=== PATIENT | female | born 1990 | race Caucasian/White ===

== ENCOUNTER 2019-04-11 13:45 | Outpatient (CLI) | payer MEDICAID ==
[2019-04-11 14:31] LABS: Basophils # (Auto) 0.1 K/mm3 (0.0-0.1); Basophils % (Auto) 1.1 % (0.0-1.8); Eosinophils % (Auto) 0.4 % (0.0-4.3); Hematocrit 32.3 % (30.3-42.9); Hemoglobin 11.1 gm/dl (10.1-14.3); Lymphocytes # (Auto) 1.5 K/mm3 (1.2-5.4); Lymphocytes % (Auto) 24.7 % (13.4-35.0); Mean Corpuscular HGB Conc 35 % (30-34); Mean Corpuscular Volume 87 fl (79-97); Monocytes # (Auto) 0.6 K/mm3 (0.0-0.8); Monocytes % (Auto) 9.4 % (0.0-7.3); Platelet Count 115 K/mm3 (140-440); Red Blood Count 3.72 M/mm3 (3.65-5.03); Red Cell Distribution Width 16.8 % (13.2-15.2)
[2019-04-11 15:02] LABS: Creatinine,Urine 103.4 mg/dL (0.1-20.0); Protein/Creatinine Ratio,Urine 0.17
[2019-04-11 15:41] LABS: Alanine Aminotransferase 9 units/L (7-56); Albumin 2.5 g/dL (3.9-5)
[2019-04-11 15:43] LABS: Bilirubin,Direct < 0.2 mg/dL (0-0.2)
--- NOTE | 2019-04-11 16:35 | Progress Note ---
Subjective - Subjective Date of service: 04/11/19 Interval history: Patient at 31+6/7 weeks BP's in triage <140/90 BPP 8/8x2 P/C ratio 0.17 no acute OB complaints no intervention at this time D/C home, fup PNP w/in one week. Preeclampsia and labor precautions Solomon Coats MD Objective - Vital Signs Vital Signs: Vital Signs - 12hr 04/11/19 04/11/19 04/11/19 14:07 14:08 14:13 Temperature Pulse Rate 82 85 87 Respiratory Rate Blood Pressure 137/89 O2 Sat by Pulse 99 99 Oximetry 04/11/19 04/11/19 04/11/19 14:18 14:22 14:23 Temperature Pulse Rate 82 83 83 Respiratory Rate Blood Pressure 128/87 O2 Sat by Pulse 99 99 Oximetry 04/11/19 04/11/19 04/11/19 14:25 14:28 14:33 Temperature 98.2 F Pulse Rate 85 87 Respiratory 18 Rate Blood Pressure O2 Sat by Pulse 99 99 Oximetry 04/11/19 04/11/19 04/11/19 14:38 14:39 14:43 Temperature Pulse Rate 90 82 86 Respiratory Rate Blood Pressure 133/80 O2 Sat by Pulse 99 99 Oximetry 04/11/19 04/11/19 04/11/19 14:48 14:53 14:54 Temperature Pulse Rate 80 79 86 Respiratory Rate Blood Pressure 126/82 O2 Sat by Pulse 100 98 Oximetry 04/11/19 04/11/19 04/11/19 14:58 15:03 15:07 Temperature Pulse Rate 81 85 80 Respiratory Rate Blood Pressure 123/83 O2 Sat by Pulse 98 98 Oximetry 04/11/19 04/11/19 15:08 16:31 Temperature Pulse Rate 80 78 Respiratory Rate Blood Pressure 136/87 O2 Sat by Pulse 98 100 Oximetry - Labs Labs: Abnormal Labs 04/11/19 04/11/19 04/11/19 14:15 14:15 Unknown MCHC 35 H RDW 16.8 H Plt Count 115 L [place] % (Auto) 9.4 H Alkaline Phosphatase 273 H Total Protein 6.2 L Albumin 2.5 L Urine Creatinine 103.4 H Ur Total Protein 24 Hr Urine Total Protein 18 H 04/11/19 Unknown MCHC RDW Plt Count [place] % (Auto) Alkaline Phosphatase Total Protein Albumin Urine Creatinine Ur Total Protein 24 Hr 220.00 H Urine Total Protein 20 H Laboratory Results - last 24 hr 04/11/19 04/11/19 04/11/19 14:15 14:15 14:15 WBC 6.2 RBC 3.72 Hgb 11.1 Hct 32.3 MCV 87 MCH 30 MCHC 35 H RDW 16.8 H Plt Count 115 L Lymph % (Auto) 24.7 [place] % (Auto) 9.4 H Eos % (Auto) 0.4 Baso % (Auto) 1.1 Lymph # 1.5 [place] # 0.6 Eos # 0.0 Baso # 0.1 Seg Neutrophils % 64.4 Seg Neutrophils # 4.0 Uric Acid 6.5 Total Bilirubin 0.30 Direct Bilirubin < 0.2 Indirect Bilirubin 0.1 AST 22 ALT 9 Alkaline Phosphatase 273 H Total Protein 6.2 L Albumin 2.5 L Albumin/Globulin Ratio 0.7 Urine Total Volume Urine Creatinine Ur Total Protein 24 Hr Protein/Creatinin Ratio Urine Total Protein 04/11/19 04/11/19 Unknown Unknown WBC RBC Hgb Hct MCV MCH MCHC RDW Plt Count Lymph % (Auto) [place] % (Auto) Eos % (Auto) Baso % (Auto) Lymph # [place] # Eos # Baso # Seg Neutrophils % Seg Neutrophils # Uric Acid Total Bilirubin Direct Bilirubin Indirect Bilirubin AST ALT Alkaline Phosphatase Total Protein Albumin Albumin/Globulin Ratio Urine Total Volume 1100 Urine Creatinine 103.4 H Ur Total Protein 24 Hr 220.00 H Protein/Creatinin Ratio 0.17 Urine Total Protein 18 H 20 H
--- NOTE | 2019-04-11 16:40 | Ultrasound Report ---
Biophysical profile twin B INDICATION: PIH COMPARISON: None FINDINGS: breathing movement: 2/2 movement: 2/2 posture and tone: 2/2 Qualitative amniotic fluid volume: 2/2 IMPRESSION: Total score for biophysical profile is 8/8 heart rate is 128 bpm Signer Name: Vinny Billings MD Signed: 04/11/2019 4:36 PM Workstation Name: [facility] [place]
--- NOTE | 2019-04-11 16:42 | Ultrasound Report ---
Umbilical artery Doppler , TWIN A INDICATION: -induced hypertension FINDINGS: SD ratio average is 2.77 with a normal waveform. This is within the normal range. Resistive index averages is 0.64 with normal waveform. This is within normal range. heart rate is 139 bpm. IMPRESSION: Umbilical artery Doppler is within normal limits Signer Name: Vinny Billings MD Signed: 04/11/2019 4:38 PM Workstation Name: [id number]
--- NOTE | 2019-04-11 16:48 | Ultrasound Report ---
ULTRASOUND OBSTETRIC LIMITED ULTRASOUND BIOPHYSICAL PROFILE INDICATION / CLINICAL INFORMATION: twins, maternal PIH. COMPARISON: None available. FINDINGS: Twin intrauterine . Twin A: BREATHING MOVEMENT = 2 GROSS BODY MOVEMENT = 2 TONE = 2 QUALITATIVE AMNIOTIC FLUID VOLUME = 2 TOTAL BIOPHYSICAL SCORE = 8/8 HEART RATE (beats per minute): 132 Twin B: BREATHING MOVEMENT = 2 GROSS BODY MOVEMENT = 2 TONE = 2 QUALITATIVE AMNIOTIC FLUID VOLUME = 2 TOTAL BIOPHYSICAL SCORE = 8/8 HEART RATE (beats per minute): 128 IMPRESSION: 1. Twin intrauterine . 2. Both twins have total biophysical profile score of 8/8. Signer Name: Negro Sinha MD Signed: 04/11/2019 4:44 PM Workstation Name: [id number]
[2019-04-11 16:57] VITALS: BP 138/84
--- NOTE | 2019-04-11 17:25 | Ultrasound Report ---
Umbilical artery Doppler, twin B INDICATION: -induced hypertension FINDINGS: The S/D ratio average is 2.58 within the normal range. Waveform is normal. Resistive index averages 0.61 with a normal waveform. This is normal. heart rate is 153 bpm IMPRESSION: SD ratios and resistive index are normal. This study is within normal limits. Signer Name: Vinny Billings MD Signed: 04/11/2019 5:21 PM Workstation Name: [id number]
== END 2019-04-11 16:59 | disposition home or self-care (01) ==
LOC: TRG 13:45
PROVIDERS: ATTEND Obstetrics & Gynecology
DX: O13.3 Gestational [pregnancy-induced] hypertension without significant proteinuria, third trimester (principal); Z3A.31 31 weeks gestation of pregnancy
CPT/HCPCS: 36415; 76819; 76820; 80076; 82570; 84156; 84550; 85025

== ENCOUNTER 2019-04-25 15:14 | Outpatient (CLI) | payer OTHER ==
[2019-04-25 17:05] LABS: Hematocrit 34.9 % (30.3-42.9); Hemoglobin 11.8 gm/dl (10.1-14.3); Mean Corpuscular HGB Conc 34 % (30-34); Mean Corpuscular Volume 85 fl (79-97); Red Blood Count 4.12 M/mm3 (3.65-5.03)
[2019-04-25 17:07] LABS: Alanine Aminotransferase 8 units/L (7-56); Uric Acid 7.5 mg/dL (3.5-7.6)
[2019-04-25 17:08] LABS: Amphetamine Screen,Urine PRESUMPTIVE NEGATIVE; Benzodiazepines Screen,Urine PRESUMPTIVE NEGATIVE; Cannabinoid Screen,Urine PRESUMPTIVE NEGATIVE; Cocaine Screen,Urine PRESUMPTIVE NEGATIVE; Methadone Screen,Urine PRESUMPTIVE NEGATIVE; Opiate Screen,Urine PRESUMPTIVE NEGATIVE
[2019-04-25 17:14] LABS: Platelet Count 96 K/mm3 (140-440)
[2019-04-25 18:03] VITALS: BP 141/95
== END 2019-04-25 18:45 | disposition home or self-care (01) ==
LOC: TRG 15:14
PROVIDERS: ATTEND Obstetrics & Gynecology
DX: O47.03 False labor before 37 completed weeks of gestation, third trimester (principal); Z3A.33 33 weeks gestation of pregnancy
CPT/HCPCS: 36415; 80307; 82565; 83615; 84450; 84460; 84550; 85027

== ENCOUNTER 2019-04-28 15:00 | Inpatient (IN) | payer OTHER ==
[2019-04-28 17:00] LABS: Hematocrit 37.9 % (30.3-42.9); Hemoglobin 12.8 gm/dl (10.1-14.3); Mean Corpuscular HGB Conc 34 % (30-34); Mean Corpuscular Volume 84 fl (79-97); Red Blood Count 4.53 M/mm3 (3.65-5.03); Red Cell Distribution Width 16.6 % (13.2-15.2)
[2019-04-28] MEDS ORDERED: LACTATED RINGERS 1,000 ML IV SCH ×2 (17:00→20:00)
[2019-04-28 17:14] LABS: Alanine Aminotransferase 7 units/L (7-56); Uric Acid 7.8 mg/dL (3.5-7.6)
[2019-04-28 18:29] LABS: Bacteria,Urine 1+ /HPF (Negative); Bilirubin,Urine NEG (Negative); Blood,Urine NEG (Negative); Color,Urine Amber (Yellow); Mucus,Urine FEW /HPF; Urobilinogen,Urine < 2.0 mg/dL (<2.0)
[2019-04-28 19:00] LABS: Platelet Count 98 K/mm3 (140-440)
[2019-04-28] MEDS ORDERED: BICITRA ORAL LIQD 30ML PO ONE (19:49)
[2019-04-28] MEDS ORDERED: METOCLOPRAMIDE 10 MG/2 ML INJ IV ONE (19:49)
[2019-04-28] MEDS ORDERED: FAMOTIDINE 20 MG/2 ML INJ IV ONE (19:49)
[2019-04-28] MEDS ORDERED: ceFAZolin/Water 2 GM/20 ML 2 GM/20 ML SYRINGE IV NR (20:00)
[2019-04-28] MEDS ORDERED: OXYTOCIN 20 UNIT/1000ML DRIP 20 UNITS/1,000 ML BAG IV SCH ×2 (20:00→22:00)
--- NOTE | 2019-04-28 20:00 | History and Physical Report ---
History of Present Illness Date of examination: 04/28/19 Date of admission: 04/28/19 15:00 Chief complaint: Suspected preeclampsia History of present illness: Pt is a 28yo HF EDC 06/07/19; EGA 34 2/7 weeks presents to L&D from [facility] for delivery due to Gestational hypertension with Twin gestation Vtx/Breech presentation. She received care at [facility] since 17 weeks and co-managed by [facility] for [place]/Di Twin gestation and seen in the office today with complaints of headaches and elevated BP's 145/93. She is currently stephen q 1-2 mins. records are available, but GBS is unknown. Past History Past Medical History: no pertinent history Past Surgical History: no surgical history Family/Genetic History: none Social history: no significant social history, single - Obstetrical History Expected Date of Delivery: 06/07/19 Actual Gestation: 34 Week(s) 2 Day(s) : 2 Medications and Allergies Allergies Allergy/AdvReac Type Severity Reaction Status Date / Time No Known Allergies Allergy Verified 04/28/19 16:26 Home Medications Medication Instructions Recorded Confirmed Last Taken Type Ferrous Sulfate [Feosol 325 MG tab] 325 mg PO BID #60 tablet 05/02/13 04/11/19 04/11/19 08:00 Rx [id number]/Iron Fum/Folic/Docusate 1 each PO QDAY #30 tablet 05/02/13 04/11/19 04/10/19 21:00 Rx [ 19 Tablet] Active Meds: Active Medications Citric Acid/Sodium Citrate (Bicitra) 30 ml PO ONCE ONE Stop: 04/28/19 19:50 Famotidine (Pepcid) 20 mg IV ONCE ONE Stop: 04/28/19 19:50 Lactated Ringer's (Lactated Ringers) 1,000 mls @ 125 mls/hr IV DIRECT FELIX Last Admin: 04/28/19 18:18 Dose: 125 mls/hr Documented by: Oxytocin/Sodium Chloride (Pitocin/Ns 20 Unit/1000ml Drip) 20 units in 1,000 mls @ 0 mls/hr IV TITR FELIX Lactated Ringer's (Lactated Ringers) 1,000 mls @ 2,250 mls/hr IV PREOP FELIX Stop: 04/29/19 20:27 Metoclopramide HCl (Reglan) 10 mg IV ONCE ONE Stop: 04/28/19 19:50 Review of Systems All systems: negative - Vital Signs Vital signs: Vital Signs Pulse Pulse Ox 73 99 04/28/19 15:33 04/28/19 15:33 Temp Pulse Resp BP Pulse Ox 98.3 F 80 156/92 99 04/28/19 16:00 04/28/19 19:47 04/28/19 19:34 04/28/19 19:47 - Physical Exam Breasts: Positive: deferred Cardiovascular: Regular rate Lungs: Positive: Clear to auscultation Abdomen: Positive: normal appearance Genitourinary (Female): Positive: normal external genitalia Vagina: Positive: normal moisture Uterus: Positive: enlarged Extremities: Positive: normal Deep Tendon Reflex Grade: Normal +2 - Obstetrical FHR: category 1 Uterine Contraction Monitor Mode: External Uterine Contraction Pattern: Regular Uterine Tone Measurement Phase: Contraction Uterine Contraction Intensity: Moderate Results Result Diagrams: 04/28/19 16:37 04/28/19 16:37 Abnormal lab results 04/28/19 04/28/19 04/28/19 Range/Units 16:37 16:37 Unknown RDW 16.6 H (13.2-15.2) % Plt Count 98 L (140-440) K/mm3 Uric Acid 7.8 H (3.5-7.6) mg/dL Lactate Dehydrogenase 292 H (91-180) units/L Urine WBC (Auto) 8.0 H (0.0-6.0) /HPF All other labs normal. Ultrasound: report reviewed ([facility] 02/10) Assessment and Plan - Patient Problems (1) 34 weeks gestation of Onset Date: 04/28/19 Current Visit: Yes Status: Acute Plan to address problem: A: IUP @ 34 2/7 weeks in early labor Twin gestation (Vtx/Breech) PIH Thrombocytopenia P: Admit to L&D for delivery by C Section. (2) Twin gestation in third trimester Onset Date: 04/28/19 Current Visit: Yes Status: Acute Qualifiers: Multiple gestation type: monochorionic and diamniotic Qualified Code(s): O30.033 - Twin , monochorionic/diamniotic, third trimester (3) PIH ( induced hypertension) Onset Date: 04/28/19 Current Visit: Yes Status: Acute Qualifiers: Trimester: third trimester Qualified Code(s): O13.3 - Gestational [-induced] hypertension without significant proteinuria, third trimester (4) Thrombocytopenia Onset Date: 04/28/19 Current Visit: Yes Status: Acute
[2019-04-28] MEDS ORDERED: ONDANSETRON 4 MG/2 ML INJ IV PRN (20:12)
[2019-04-28] MEDS ORDERED: HYDROmorphone 1 MG/1 ML INJ IV PRN (20:12)
--- NOTE | 2019-04-28 20:12 | Anesthesia Consultation ---
Anesthesia Consult and Med Hx Date of service: 04/28/19 - Airway Anesthetic Teeth Evaluation: Good ROM Head & Neck: Adequate Mental/Hyoid Distance: Adequate Mallampati Class: Class II Intubation Access Assessment: Probably Good - Pulmonary Exam CTA: Yes - Cardiac Exam Cardiac Exam: RRR - Pre-Operative Health Status ASA Pre-Surgery Classification: ASA2, ASA3, Emergency Proposed Anesthetic Plan: Spinal - Pulmonary Hx Smoking: No Hx Asthma: No Hx Respiratory Symptoms: No SOB: Yes (with ) COPD: No Home Oxygen Therapy: No Hx Pneumonia: No Hx Sleep Apnea: No - Cardiovascular System Hx Hypertension: Yes (PIH) Hx Coronary Artery Disease: No Hx Heart Attack/AMI: No Hx Angina: No Hx Percutaneous Transluminal Coronary Angioplasty (PTCA): No Hx Cardia Arrhythmia: No Hx Pacemaker: No Hx Internal Defibrillator: No Hx Valvular Heart Disease: No Hx Heart Murmur: No Hx Peripheral Vascular Disease: No - Central Nervous System Hx Neuromuscular Disorder: No Hx Seizures: No CVA: No Hx Back Pain: No Hx Psychiatric Problems: No - Gastrointestinal Hx Ulcer: No Hx Gastroesophageal Reflux Disease: No - Endocrine Hx Renal Disease: No Hx End Stage Renal Disease: No Hx Cirrhosis: No Hx Liver Disease: No Hx Insulin Dependent Diabetes: No Hx Non-Insulin Dependent Diabetes: No Hx Thyroid Disease: No Hx Hypothyroidism: No Hx Hyperthyroidism: No - Hematic Hx Anemia: No Hx Sickle Cell Disease: No - Other Systems Hx Alcohol Use: No Hx Substance Use: No Hx Cancer: No Hx Obesity: No
--- NOTE | 2019-04-28 20:12 | Anesthesia Day of Surgery ---
Anesthesia Day of Surgery - Day of Surgery Patient Examined: Yes Patient H&P Reviewed: Yes Patient is NPO: Yes Beta Blockers: No Cardiac Clearance: No Pulmonary Clearance: No Shaheen's Test: N/A
[2019-04-28] MEDS ORDERED: DEXMEDETOMIDINE 200 MCG/2 ML VIAL IV ONE (20:20)
[2019-04-28] MEDS ORDERED: ONDANSETRON 4 MG/2 ML INJ ONE (21:05)
[2019-04-28] MEDS ORDERED: KETOROLAC 30 MG/1 ML INJ ONE (21:05)
--- NOTE | 2019-04-28 21:40 | Operative Report ---
Operative Report Operative Report: Date of procedure: 04/28/2019 Pre-operative diagnosis: 1. Intrauterine at 34 2/7 weeks 2. Pret erm labor 3. Twin gestation 4. PIH 5. Thrombocytopenia Post-operative diagnosis: Same Procedure name(s): Repeat low transverse section Surgeon: Kings Kim MD [employer]ine Assembler: None Anesthesia: Spinal anesthesia by Roxana Starks CRNA EBL: 1000 mL's Findings: Twin A - 2027gm male infant Cephalic presentation - Apgars 8 at 1 minute and 9 at 5 minutes. 1+ meconium amniotic fluid. Twin B - 1993gm male infant Breech presentation - Apgars 8 at 1 minute and 9 at 5 minutes. Clear amniotic fluid. Normal uterus with normal tubes and ovaries bilaterally. Procedure: After the patient was prepped and draped in usual sterile fashion, and after a satisfactory level of spinal anesthesia was obtained, the skin knife was used to make a transverse skin incision. The incision was excised down to layer of the fascia, which was nicked in the midline and extended laterally using the Bovie cautery. The rectus muscles were dissected off the rectus fascia both superiorly and inferiorly. The rectus bellies in the midline, and the peritoneum was entered under direct visualization. The peritoneal incision was extended superiorly and inferiorly, a bladder flap was created and the bladder blade was placed. The uterus was scored in a curvilinear linear fashion, entered in the midline revealing 1+ meconium amniotic fluid. Twin A's head was delivered onto the surgical field, and the oropharynx and nasopharynx were bulb suctioned. The rest of the infant's body was delivered, cord was doubly clamped and cut and the infant was handed to the waiting respiratory team. Cord blood was then obtained. After amniotomy revealed clear amniotic fluid, Twin B's Dave Breech was delivered onto the surgical field, the rest of the body delivered, the oropharynx and nasopharynx were bulb suctioned, and the handed to the awaiting respiratory team. Cord blood was then obtained. The placentas were manually removed from the uterus and the uterus removed from its normal anatomical position. After gentle uterine lavage, the incision was inspected and found to be without extensions, it was then closed in 2 layers using 0 Vicryl suture in a running interlocking fashion, the second layer imbricating the first. After good hemostasis was achieved, copious amounts or irrigation was performed, and the gutters were suctioned free of blood and blood clots. The Tisseal sealant was sprayed across the uterine incision and excellent hemostasis was assured. The uterus was then returned to its normal anatomical position, and after excellent hemostasis a ssured, the peritoneum was re-approximated using 3-0 Vicryl suture in a running interlocking fashion, and then the rectus muscles were re-approximated using 3-0 Vicryl suture in a [id number] configuration. The fascia was then re- approximated using 0 Vicryl suture in running interlocking fashion. The subcutaneous layer was made hemostatic using Bovie cautery and the skin edges re-approximated using 4-0 Vicryl suture in a sub-cuticular fashion. Patient tolerated the procedure well was transported to recovery in stable condition.
[2019-04-28] MEDS ORDERED: SENNOSIDES 8.6 MG TAB PO PRN (21:42)
[2019-04-28] MEDS ORDERED: HYDROcodone/ACETAMINOPHEN 5-325 MG TAB PO PRN (21:42)
[2019-04-28] MEDS ORDERED: WITCH HAZEL/ GLYCERIN PAD TP PRN (21:42)
[2019-04-28] MEDS ORDERED: NALOXONE 0.4 MG/1 ML INJ IV PRN (21:42)
[2019-04-28] MEDS ORDERED: ACETAMINOPHEN 325 MG TAB PO PRN (21:42)
[2019-04-28] MEDS ORDERED: LANOLIN/ZINC/DIMETHICONE (LANSINOH) 7 GM TP PRN (21:42)
[2019-04-28] MEDS ORDERED: KETOROLAC 30 MG/1 ML INJ IV PRN (21:42)
[2019-04-28] MEDS ORDERED: SIMETHICONE 80 MG CHEW TAB PO PRN (21:42)
--- NOTE | 2019-04-28 22:00 | Post Anesthesia Evaluation ---
- Post Anesthesia Evaluation Patient Participated: Yes Airway Patent: Yes Stable Respiratory Function: Yes Nausea/Vomiting: No Temp > 96.8F: Yes Pain Manageable: Yes Adequeate Hydration: Yes Anesthesia Complications: No Block Receding Appropriately: Yes Patient on Ventilator: No
[2019-04-29] MEDS: ceFAZolin/NS 1 GM/50 ML 1 GM/50 ML BAG IV SCH ×2 (04:26→11:40)
[2019-04-29] MEDS: D5W/LACTATED RINGERS 1,000 ML IV SCH ×2 (04:28→14:28)
[2019-04-29] MEDS ORDERED: MEASLES, MUMPS & RUBELLA 12,500 UNIT/0.5 ML VACCINE SUB-Q ONE (06:00)
[2019-04-29] MEDS ORDERED: TETANUS,DIPH,PERTUSS(ACELL) VACCINE 0.5 ML SYRINGE IM ONE (06:00)
--- NOTE | 2019-04-29 09:53 | Progress Note ---
Assessment and Plan - Patient Problems (1) S/P repeat low transverse Current Visit: Yes Status: Acute Plan to address problem: Continue routine PP orders Keep incision dry and clean Anticipate d/c home in 48-72 hrs Subjective - Subjective Date of service: 04/29/19 Principal diagnosis: S/P Repeat C/S Interval history: See admission H & P and OB operative note Patient reports: appetite normal (on clear liquid diet), pain well controlled (with medications), no flatus, no bowel movement [place]: in NICU, bottle feeding Objective - Vital Signs Latest vital signs: Vital Signs Temp Pulse Resp BP Pulse Ox 04/29/19 04:37 98.0 F 18 116/69 04/29/19 04:30 98.0 F 69 98 04/29/19 02:50 95.5 F L 04/28/19 23:48 94.9 F L 60 116/75 97 04/28/19 22:35 98 H 10 L 112/75 98 04/28/19 22:20 61 11 L 111/71 97 04/28/19 22:05 62 12 112/71 98 04/28/19 22:00 65 10 L 119/65 98 04/28/19 21:55 64 12 110/78 97 04/28/19 21:50 97.5 F L 63 18 112/71 97 04/28/19 20:17 77 99 04/28/19 20:12 82 100 04/28/19 20:07 89 99 04/28/19 20:02 79 99 04/28/19 20:00 97.8 F 78 16 110/78 97 04/28/19 19:57 79 99 04/28/19 19:52 80 99 04/28/19 19:47 80 99 04/28/19 19:42 79 99 04/28/19 19:37 77 99 04/28/19 19:34 77 156/92 04/28/19 19:32 79 99 04/28/19 19:27 79 99 04/28/19 19:22 85 99 04/28/19 19:17 90 99 04/28/19 19:12 79 99 04/28/19 19:07 76 100 04/28/19 19:02 83 100 04/28/19 18:57 77 99 04/28/19 18:52 77 100 04/28/19 18:47 78 99 04/28/19 18:42 81 99 04/28/19 18:37 76 99 04/28/19 18:34 71 134/83 04/28/19 18:32 77 99 04/28/19 18:27 72 99 04/28/19 18:22 81 98 04/28/19 18:17 80 100 04/28/19 18:12 76 99 04/28/19 18:07 74 99 04/28/19 18:02 77 99 04/28/19 17:57 76 99 04/28/19 17:52 83 99 04/28/19 17:47 74 0 L 04/28/19 17:33 73 138/82 04/28/19 17:31 76 144/68 04/28/19 17:29 77 100 04/28/19 17:24 77 100 04/28/19 17:19 76 100 04/28/19 17:14 76 100 04/28/19 17:09 80 98 04/28/19 17:04 75 99 04/28/19 16:59 73 100 04/28/19 16:48 83 98 04/28/19 16:43 76 100 04/28/19 16:39 77 82 L 04/28/19 16:38 80 100 04/28/19 16:33 74 100 04/28/19 16:28 79 100 04/28/19 16:23 77 100 04/28/19 16:20 75 130/76 04/28/19 16:18 76 100 04/28/19 16:13 78 100 04/28/19 16:08 74 100 04/28/19 16:03 72 100 04/28/19 16:00 98.3 F 04/28/19 15:59 74 137/81 04/28/19 15:58 70 138/79 100 04/28/19 15:53 77 100 04/28/19 15:48 70 100 04/28/19 15:43 75 100 04/28/19 15:38 76 100 04/28/19 15:33 73 99 Intake and Output 04/28/19 04/29/19 04/29/19 23:59 07:59 15:59 Intake Total 1650 Output Total 250 75 Balance 1400 -75 Intake: IV 1650 Output: Urine 250 75 Indwelling Catheter 75 Uretheral (Mike) 100 Other: Total, Output Amount 75 Voiding Method Toilet Weight 69.853 kg Estimated Blood Loss 1,000 - Exam Breasts: Present: normal Cardiovascular: Present: Regular rate Lungs: Present: Normal air movement Abdomen: Present: soft, tenderness Uterus: Present: firm, fundal height below umbilicus (U-1) Extremities: Present: edema (BLE, mechanical compression hoses in place) Incision: Present: dressed (no shadow drainage or bleeding noted) - Labs Labs: Abnormal lab results 04/28/19 04/28/19 04/28/19 Range/Units 16:37 16:37 Unknown RDW 16.6 H (13.2-15.2) % Plt Count 98 L (140-440) K/mm3 Uric Acid 7.8 H (3.5-7.6) mg/dL Lactate Dehydrogenase 292 H (91-180) units/L Urine WBC (Auto) 8.0 H (0.0-6.0) /HPF
[2019-04-29] MEDS: FERROUS SULFATE 325 MG TAB PO SCH ×2 (09:57→21:40)
[2019-04-29] MEDS: PRENATAL VIT27-FE FUMARATE-FOLIC ACID VIT TAB PO SCH (09:58)
[2019-04-29] MEDS: oxyCODONE /ACETAMINOPHEN 5-325MG TAB PO PRN ×3 (09:58→22:35)
[2019-04-29 13:04] LABS: Hemoglobin 9.5 gm/dl (10.1-14.3); Mean Corpuscular HGB Conc 34 % (30-34); Mean Corpuscular Volume 85 fl (79-97); Red Blood Count 3.29 M/mm3 (3.65-5.03); Red Cell Distribution Width 16.4 % (13.2-15.2)
[2019-04-29 14:18] LABS: Platelet Count 86 K/mm3 (140-440)
[2019-04-30] MEDS: LABETALOL 200 MG TAB PO SCH ×4 (03:30→20:28)
[2019-04-30] MEDS: IBUPROFEN 800 MG TAB PO PRN (04:41)
[2019-04-30] MEDS: PRENATAL VIT27-FE FUMARATE-FOLIC ACID VIT TAB PO SCH (09:00)
[2019-04-30] MEDS: FERROUS SULFATE 325 MG TAB PO SCH ×2 (09:00→20:28)
[2019-04-30] MEDS: MAGNESIUM HYDROXIDE (MOM) ORAL LIQD UDC PO PRN (09:19)
[2019-04-30] MEDS: oxyCODONE /ACETAMINOPHEN 5-325MG TAB PO PRN (09:19)
[2019-04-30] MEDS ORDERED: MAGNESIUM SULFATE 4 GM/100 ML BAG IV ONE ×2 (09:50→13:54)
--- NOTE | 2019-04-30 09:58 | Event Note ---
Date: 04/30/19 Patient's BPs elevated this morning. New onset of headache; denies visual disturbance. Denies chest pain or shortness of breath. Denies nausea. Swelling in lower extremities bilaterally. 2+ reflexes bilaterally. Stat labs ordered to recheck LFTs and platelet count. Platelet count low since admission. Patient moved back to L&D and magnesium sulfate ordered. Dr. Henriquez notified of elevated blood pressures, move to L&D, and magnesium sulfate orders. Dr. Henriquez states she will come and see the patient.
[2019-04-30] MEDS ORDERED: MAGNESIUM SULFATE 40GM/1000ML 40 GM/1,000 ML BAG IV SCH (10:00)
[2019-04-30 11:54] LABS: Alanine Aminotransferase 11 units/L (7-56); Albumin 1.6 g/dL (3.9-5); BUN/Creatinine Ratio 18; Blood Urea Nitrogen 16 mg/dL (7-17); Calcium 7.5 mg/dL (8.4-10.2); Hemolysis Index 1; Uric Acid 7.8 mg/dL (3.5-7.6)
[2019-04-30] MEDS: D5W/LACTATED RINGERS 1,000 ML IV SCH (14:21)
[2019-04-30] MEDS: HYDROmorphone 1 MG/1 ML INJ IV PRN ×2 (14:25→20:29)
[2019-04-30 15:38] LABS: Bilirubin,Urine NEG (Negative); Blood,Urine NEG (Negative); Color,Urine Yellow (Yellow); Protein,Urine <15 mg/dL mg/dL (Negative); Urobilinogen,Urine < 2.0 mg/dL (<2.0)
[2019-05-01] MEDS: HYDROmorphone 1 MG/1 ML INJ IV PRN ×2 (02:03→06:43)
[2019-05-01] MEDS ORDERED: FUROSEMIDE 40 MG/4 ML INJ IV ONE (08:39)
[2019-05-01] MEDS ORDERED: LACTATED RINGERS 1,000 ML IV SCH (09:00)
[2019-05-01] MEDS: FERROUS SULFATE 325 MG TAB PO SCH ×2 (09:21→21:08)
[2019-05-01] MEDS: PRENATAL VIT27-FE FUMARATE-FOLIC ACID VIT TAB PO SCH (09:21)
[2019-05-01] MEDS: LABETALOL 200 MG TAB PO SCH ×3 (09:22→20:21)
[2019-05-01] MEDS: oxyCODONE /ACETAMINOPHEN 5-325MG TAB PO PRN ×2 (14:07→23:04)
--- NOTE | 2019-05-01 15:55 | Progress Note ---
Assessment and Plan - Patient Problems (1) 34 weeks gestation of Onset Date: 04/28/19 Current Visit: Yes Status: Acute (2) Pre-eclampsia Current Visit: Yes Status: Acute Plan to address problem: BP stable now. May transfer patient to the mother-baby unit. Continue labetolol for BP control. (3) S/P repeat low transverse Current Visit: Yes Status: Acute Plan to address problem: Continue routine post op care. (4) Twins, both liveborn Current Visit: Yes Status: Acute (5) Thrombocytopenia Onset Date: 04/28/19 Current Visit: Yes Status: Acute Subjective - Subjective Date of service: 05/01/19 Principal diagnosis: S/P C/section, pre-celampsia Interval history: Patient is a 28 year old who is S/P C/section for severe pre-eclampsia, twins gestation 3 days ago. Her BP was elevated on admission and she was treated with magnesium sulfate. After her delivery, her BP normalized and she as transferred to the post- floor. yesterday, her BP became elevated again in the 160's/90's and she has headache. She was brought back to the labor floor for magnesium sulfate. That was discontinued after 24 hrs. Now, her BP has been in the 130's/80's and she denies any complaint. Objective - Vital Signs Latest vital signs: Vital Signs Temp Pulse Resp BP Pulse Ox 05/01/19 15:11 72 96 05/01/19 15:06 73 96 05/01/19 15:01 72 97 05/01/19 15:00 70 142/86 05/01/19 14:56 71 97 05/01/19 14:51 73 97 05/01/19 14:46 75 97 05/01/19 14:41 73 96 05/01/19 14:36 75 97 05/01/19 14:31 75 97 05/01/19 14:30 74 141/93 05/01/19 14:26 77 97 05/01/19 14:21 71 97 05/01/19 14:16 77 97 05/01/19 14:11 75 97 05/01/19 14:08 74 137/89 05/01/19 14:07 77 127/86 05/01/19 14:06 76 97 05/01/19 14:01 74 97 05/01/19 14:00 72 127/86 05/01/19 13:56 75 96 05/01/19 13:51 77 97 05/01/19 13:46 68 97 05/01/19 13:41 67 97 05/01/19 13:36 68 96 05/01/19 13:31 69 96 05/01/19 13:30 67 135/82 05/01/19 13:26 69 96 05/01/19 13:21 71 96 05/01/19 13:16 72 96 05/01/19 13:14 73 94 05/01/19 13:11 67 96 05/01/19 13:06 70 96 05/01/19 13:01 71 96 05/01/19 13:00 67 131/82 05/01/19 12:56 69 96 05/01/19 12:51 69 96 05/01/19 12:46 69 96 05/01/19 12:41 70 96 05/01/19 12:36 70 96 05/01/19 12:31 70 97 05/01/19 12:30 70 137/88 05/01/19 12:26 72 96 05/01/19 12:21 74 97 05/01/19 12:16 73 97 05/01/19 12:11 78 97 05/01/19 12:06 82 97 05/01/19 12:01 76 97 05/01/19 12:00 74 127/80 05/01/19 11:56 76 97 05/01/19 11:51 85 97 05/01/19 11:46 76 97 05/01/19 11:41 78 96 05/01/19 11:36 71 96 05/01/19 11:31 69 96 05/01/19 11:30 69 133/79 05/01/19 11:26 72 96 05/01/19 11:21 71 96 05/01/19 11:16 71 96 05/01/19 11:11 73 96 05/01/19 11:06 78 96 05/01/19 11:01 71 96 05/01/19 11:00 71 137/86 05/01/19 10:56 76 97 05/01/19 10:51 78 97 05/01/19 10:46 79 96 05/01/19 10:41 73 96 05/01/19 10:36 85 96 05/01/19 10:31 79 97 05/01/19 10:30 80 135/91 05/01/19 10:26 74 96 05/01/19 10:21 74 96 05/01/19 10:16 76 96 05/01/19 10:11 76 96 05/01/19 10:06 78 96 05/01/19 10:01 82 96 05/01/19 10:00 75 140/89 05/01/19 09:56 79 97 05/01/19 09:51 79 97 05/01/19 09:46 79 97 05/01/19 09:41 85 97 05/01/19 09:36 75 96 05/01/19 09:31 87 98 05/01/19 09:26 76 97 05/01/19 09:22 75 139/93 05/01/19 09:21 77 97 05/01/19 09:16 75 97 05/01/19 09:12 74 139/93 05/01/19 09:11 81 97 05/01/19 09:06 79 97 05/01/19 09:01 87 97 05/01/19 08:56 79 97 05/01/19 08:51 76 97 05/01/19 08:46 81 98 05/01/19 08:41 77 97 05/01/19 08:36 79 97 05/01/19 08:31 75 98 05/01/19 08:26 70 96 05/01/19 08:21 79 98 05/01/19 08:16 76 98 05/01/19 08:13 72 149/100 05/01/19 08:11 73 98 05/01/19 08:06 74 97 05/01/19 08:05 98.0 F 05/01/19 08:01 72 98 05/01/19 07:56 77 98 05/01/19 07:51 82 97 05/01/19 07:46 68 97 05/01/19 07:41 73 96 05/01/19 07:36 68 97 05/01/19 07:31 69 97 05/01/19 07:26 72 97 05/01/19 07:21 70 97 05/01/19 07:16 71 96 05/01/19 07:12 68 117/78 05/01/19 07:11 70 97 05/01/19 07:06 69 97 05/01/19 07:01 70 96 05/01/19 06:56 71 97 05/01/19 06:51 70 96 05/01/19 06:46 71 97 05/01/19 06:41 79 98 05/01/19 06:36 70 97 05/01/19 06:31 69 97 05/01/19 06:26 70 97 05/01/19 06:21 71 97 05/01/19 06:16 78 97 05/01/19 06:12 71 136/88 05/01/19 06:11 83 97 05/01/19 06:06 78 97 05/01/19 06:01 85 98 05/01/19 05:56 80 97 05/01/19 05:51 81 98 05/01/19 05:46 82 97 05/01/19 05:41 79 97 05/01/19 05:36 84 97 05/01/19 05:31 70 97 05/01/19 05:26 71 98 05/01/19 05:21 70 97 05/01/19 05:16 71 97 05/01/19 05:12 65 140/86 05/01/19 05:11 66 97 05/01/19 05:06 68 97 05/01/19 05:01 66 98 05/01/19 04:56 68 97 05/01/19 04:51 67 97 05/01/19 04:46 68 98 05/01/19 04:41 75 97 05/01/19 04:36 73 98 05/01/19 04:31 75 97 05/01/19 04:26 83 97 05/01/19 04:21 65 98 05/01/19 04:16 67 97 05/01/19 04:12 65 143/84 05/01/19 04:11 68 97 05/01/19 04:06 78 98 05/01/19 04:01 79 96 05/01/19 03:56 77 97 05/01/19 03:51 80 98 05/01/19 03:46 65 97 05/01/19 03:41 66 97 05/01/19 03:36 66 97 05/01/19 03:31 67 98 05/01/19 03:26 70 98 05/01/19 03:21 77 98 05/01/19 03:16 71 98 05/01/19 03:12 82 126/81 05/01/19 03:11 75 98 05/01/19 03:06 70 96 05/01/19 03:01 74 97 05/01/19 02:56 71 96 05/01/19 02:51 72 96 05/01/19 02:46 82 98 05/01/19 02:41 77 96 05/01/19 02:36 78 97 05/01/19 02:31 80 97 05/01/19 02:26 74 96 05/01/19 02:21 76 96 05/01/19 02:16 79 96 05/01/19 02:12 82 117/84 05/01/19 02:11 80 96 05/01/19 02:06 76 96 05/01/19 02:01 81 97 05/01/19 01:56 87 97 05/01/19 01:51 82 96 05/01/19 01:46 81 97 05/01/19 01:41 76 97 05/01/19 01:36 81 98 05/01/19 01:31 71 97 05/01/19 01:26 68 97 05/01/19 01:21 69 97 05/01/19 01:16 68 97 05/01/19 01:12 68 128/82 05/01/19 01:11 70 96 05/01/19 01:06 69 96 05/01/19 01:01 69 96 05/01/19 00:56 68 96 05/01/19 00:51 70 96 05/01/19 00:46 69 96 05/01/19 00:41 67 96 05/01/19 00:36 70 96 05/01/19 00:31 70 96 05/01/19 00:26 67 96 05/01/19 00:21 70 96 05/01/19 00:16 70 96 05/01/19 00:12 69 127/76 05/01/19 00:11 70 96 05/01/19 00:06 70 96 05/01/19 00:01 69 96 04/30/19 23:56 70 96 04/30/19 23:51 69 96 04/30/19 23:46 70 96 04/30/19 23:41 70 96 04/30/19 23:36 70 96 04/30/19 23:31 69 95 04/30/19 23:26 69 96 04/30/19 23:21 71 96 04/30/19 23:16 71 96 04/30/19 23:12 67 117/70 04/30/19 23:11 69 96 04/30/19 23:06 68 96 04/30/19 23:01 67 96 04/30/19 22:56 68 96 04/30/19 22:51 66 96 04/30/19 22:46 67 96 04/30/19 22:41 68 97 04/30/19 22:36 71 96 04/30/19 22:31 72 97 04/30/19 22:26 76 98 04/30/19 22:21 75 97 04/30/19 22:16 66 97 04/30/19 22:15 77 129/84 04/30/19 22:11 67 96 04/30/19 22:06 66 96 04/30/19 22:01 66 96 04/30/19 21:56 65 96 04/30/19 21:51 66 96 04/30/19 21:46 67 96 04/30/19 21:41 65 96 04/30/19 21:36 66 96 04/30/19 21:31 71 97 04/30/19 21:30 70 94 04/30/19 21:26 67 96 04/30/19 21:25 65 117/77 04/30/19 21:21 68 96 04/30/19 21:16 67 96 04/30/19 21:11 67 96 04/30/19 21:06 68 96 04/30/19 21:01 68 96 04/30/19 20:56 68 96 04/30/19 20:55 66 124/83 04/30/19 20:51 66 97 04/30/19 20:46 66 96 04/30/19 20:41 66 96 04/30/19 20:36 66 96 04/30/19 20:31 79 98 04/30/19 20:29 14 04/30/19 20:28 80 144/91 04/30/19 20:26 70 144/91 97 04/30/19 20:21 70 97 04/30/19 20:16 73 97 04/30/19 20:11 75 98 04/30/19 20:08 76 142/89 04/30/19 20:06 75 98 04/30/19 20:01 69 97 04/30/19 19:56 69 97 04/30/19 19:55 67 145/86 04/30/19 19:51 68 97 04/30/19 19:46 67 97 04/30/19 19:41 70 98 04/30/19 19:36 71 98 04/30/19 19:31 73 98 04/30/19 19:30 97.8 F 14 04/30/19 19:26 74 97 04/30/19 19:25 71 139/84 04/30/19 19:21 73 97 04/30/19 19:16 73 97 04/30/19 19:11 70 97 04/30/19 19:06 69 97 04/30/19 19:01 69 97 04/30/19 18:56 75 98 04/30/19 18:55 65 138/85 04/30/19 18:51 77 97 04/30/19 18:46 79 98 04/30/19 18:41 73 97 04/30/19 18:36 78 97 04/30/19 18:31 80 97 04/30/19 18:26 63 96 04/30/19 18:25 64 130/83 04/30/19 18:21 67 97 04/30/19 18:16 79 97 04/30/19 18:11 66 96 04/30/19 18:06 66 96 04/30/19 18:01 68 96 04/30/19 17:56 67 96 04/30/19 17:55 65 120/79 04/30/19 17:51 67 96 04/30/19 17:46 71 96 04/30/19 17:41 75 97 04/30/19 17:36 81 96 04/30/19 17:31 73 97 04/30/19 17:26 73 145/97 97 04/30/19 17:21 74 97 04/30/19 17:16 74 97 04/30/19 17:11 73 97 04/30/19 17:06 68 97 04/30/19 17:01 73 97 04/30/19 16:56 71 97 04/30/19 16:54 97.6 F 70 16 148/93 04/30/19 16:51 69 97 04/30/19 16:46 68 97 04/30/19 16:41 75 97 04/30/19 16:36 77 97 04/30/19 16:31 76 97 04/30/19 16:26 66 97 04/30/19 16:24 65 138/75 04/30/19 16:21 69 97 04/30/19 16:16 71 97 04/30/19 16:11 70 97 04/30/19 16:09 67 138/93 04/30/19 16:06 68 97 04/30/19 16:01 69 97 04/30/19 15:56 65 97 04/30/19 15:54 66 140/91 Intake and Output 04/30/19 05/01/19 05/01/19 23:59 07:59 15:59 Intake Total 10 470.833 10 Output Total 2135 1600 4150 Balance -8087 -4248.906 -8328 Intake: IV 10 470.833 10 MAGNESIUM SULFATE 40GM/ 470.833 1000ML 40 gm In 1,000 ml @ 2 GM/HR 50 mls/hr IV DIRECT FELIX Rx#:[id number] Right Forearm 10 10 Output: Urine 2135 1600 4150 Indwelling Catheter 2135 1600 3950 Void 200 Other: Total, Output Amount 240 1000 200 - Exam Cardiovascular: Present: Normal S1, Normal S2 Lungs: Present: Clear to auscultation Deep Tendon Reflex Grade: Normal +2 - Labs Labs: Abnormal lab results 04/30/19 05/01/19 05/01/19 Range/Units 21:31 03:21 09:10 Magnesium 6.20 H 5.70 H 5.40 H (1.7-2.3) mg/dL
[2019-05-01] MEDS: IBUPROFEN 800 MG TAB PO PRN (19:26)
[2019-05-01] MEDS: MAGNESIUM HYDROXIDE (MOM) ORAL LIQD UDC PO PRN (21:08)
[2019-05-02] MEDS: oxyCODONE /ACETAMINOPHEN 5-325MG TAB PO PRN ×3 (05:11→22:18)
[2019-05-02] MEDS: LABETALOL 200 MG TAB PO SCH ×3 (08:09→22:21)
[2019-05-02] MEDS: FERROUS SULFATE 325 MG TAB PO SCH ×2 (09:26→22:19)
[2019-05-02] MEDS: PRENATAL VIT27-FE FUMARATE-FOLIC ACID VIT TAB PO SCH (09:26)
--- NOTE | 2019-05-02 10:00 | Progress Note ---
Assessment and Plan - Patient Problems (1) S/P repeat low transverse Current Visit: Yes Status: Acute Plan to address problem: POD 4 - unstable Continue routine postop orders Ambulation with assistance encouraged Anticipate discharge in 24 hours (2) Twins, both liveborn Current Visit: Yes Status: Acute (3) Pre-eclampsia Current Visit: Yes Status: Acute Qualifiers: Trimester: third trimester Qualified Code(s): O14.93 - Unspecified pre-eclampsia, third trimester Plan to address problem: Completed magnesium sulfate therapy but still symptomatic - BPs 110/72, 128/88 Continue Labetalol 200mg PO TID (4) Thrombocytopenia Onset Date: 04/28/19 Current Visit: Yes Status: Resolved Plan to address problem: Last Platelet Count on 05/01/19 was 140 Subjective - Subjective Date of service: 05/02/19 Principal diagnosis: POD #4; s/p Repeat LTCS Interval history: see H&P, Operative Report, PP/[employer] Progress Notes and Event Note Patient reports: appetite normal, voiding normally, dizzy ambulation, pain well controlled, flatus, other (reports new-onset feeling of spinning sensation while sitting to use the bathroom. Headache and pain/swelling in both legs still present), no bowel movement [place]: doing well, in NICU Objective - Vital Signs Latest vital signs: Vital Signs Temp Pulse Resp BP BP Pulse Ox 05/02/19 08:09 62 128/88 05/02/19 07:27 97.7 F 62 18 128/88 05/02/19 05:11 18 05/02/19 03:28 97.5 F L 67 18 110/72 99 05/01/19 23:45 97.2 F L 73 19 99/68 98 05/01/19 23:04 18 05/01/19 21:56 59 L 20 100/61 98 05/01/19 20:34 97.4 F L 65 18 127/86 98 05/01/19 19:11 72 142/88 05/01/19 19:09 97.7 F 72 18 142/88 100 05/01/19 19:06 70 98 05/01/19 19:01 72 98 05/01/19 15:11 72 96 05/01/19 15:06 73 96 05/01/19 15:01 72 97 05/01/19 15:00 70 142/86 05/01/19 14:56 71 97 05/01/19 14:51 73 97 05/01/19 14:46 75 97 05/01/19 14:41 73 96 05/01/19 14:36 75 97 05/01/19 14:31 75 97 05/01/19 14:30 74 141/93 05/01/19 14:26 77 97 05/01/19 14:21 71 97 05/01/19 14:16 77 97 05/01/19 14:11 75 97 05/01/19 14:08 74 137/89 05/01/19 14:07 77 127/86 05/01/19 14:06 76 97 05/01/19 14:01 74 97 05/01/19 14:00 72 127/86 05/01/19 13:56 75 96 05/01/19 13:51 77 97 05/01/19 13:46 68 97 05/01/19 13:41 67 97 05/01/19 13:36 68 96 05/01/19 13:31 69 96 05/01/19 13:30 67 135/82 05/01/19 13:26 69 96 05/01/19 13:21 71 96 05/01/19 13:16 72 96 05/01/19 13:14 73 94 05/01/19 13:11 67 96 05/01/19 13:06 70 96 05/01/19 13:01 71 96 05/01/19 13:00 67 131/82 05/01/19 12:56 69 96 05/01/19 12:51 69 96 05/01/19 12:46 69 96 05/01/19 12:41 70 96 05/01/19 12:36 70 96 05/01/19 12:31 70 97 05/01/19 12:30 70 137/88 05/01/19 12:26 72 96 05/01/19 12:21 74 97 05/01/19 12:16 73 97 05/01/19 12:11 78 97 05/01/19 12:06 82 97 05/01/19 12:01 76 97 05/01/19 12:00 74 127/80 05/01/19 11:56 76 97 05/01/19 11:51 85 97 05/01/19 11:46 76 97 05/01/19 11:41 78 96 05/01/19 11:36 71 96 05/01/19 11:31 69 96 05/01/19 11:30 69 133/79 05/01/19 11:26 72 96 05/01/19 11:21 71 96 05/01/19 11:16 71 96 05/01/19 11:11 73 96 05/01/19 11:06 78 96 05/01/19 11:01 71 96 05/01/19 11:00 71 137/86 05/01/19 10:56 76 97 05/01/19 10:51 78 97 05/01/19 10:46 79 96 05/01/19 10:41 73 96 05/01/19 10:36 85 96 05/01/19 10:31 79 97 05/01/19 10:30 80 135/91 05/01/19 10:26 74 96 05/01/19 10:21 74 96 05/01/19 10:16 76 96 05/01/19 10:11 76 96 05/01/19 10:06 78 96 05/01/19 10:01 82 96 05/01/19 10:00 75 140/89 Intake and Output 05/01/19 05/02/19 05/02/19 23:59 07:59 15:59 Intake Total 480 Output Total 150 500 Balance -150 -20 Intake: Oral 480 Output: Urine 150 500 Void 150 500 Other: Total, Intake Amount 480 Total, Output Amount 150 300 - Exam Cardiovascular: Present: Regular rate Lungs: Present: Clear to auscultation Abdomen: Present: normal appearance, soft Vulva: both: normal Uterus: Present: normal, firm, fundal height below umbilicus Extremities: Present: tenderness, edema (BLE, 2+) Incision: Present: normal, dry, intact, other (steri strips in place) Comments: scant lochia
[2019-05-02 11:08] LABS: Hematocrit 28.2 % (30.3-42.9); Hemoglobin 9.5 gm/dl (10.1-14.3); Mean Corpuscular HGB Conc 34 % (30-34); Mean Corpuscular Volume 86 fl (79-97); Platelet Count 169 K/mm3 (140-440); Red Blood Count 3.28 M/mm3 (3.65-5.03); Red Cell Distribution Width 17.2 % (13.2-15.2)
[2019-05-02] MEDS ORDERED: ONDANSETRON 4 MG ODT TAB PO PRN (20:04)
[2019-05-03] MEDS: LABETALOL 200 MG TAB PO SCH ×2 (00:18→09:18)
[2019-05-03] MEDS: oxyCODONE /ACETAMINOPHEN 5-325MG TAB PO PRN ×2 (05:48→11:57)
[2019-05-03] MEDS: PRENATAL VIT27-FE FUMARATE-FOLIC ACID VIT TAB PO SCH (09:18)
[2019-05-03] MEDS: FERROUS SULFATE 325 MG TAB PO SCH (09:18)
--- NOTE | 2019-05-03 09:27 | Progress Note ---
Assessment and Plan - Patient Problems (1) S/P repeat low transverse Current Visit: Yes Status: Acute Plan to address problem: D/C today Keep incision dry and clean F/U in office in 7 days Wear compressin HEYDI stockings and elevate legs/feet when at rest (2) Anemia Current Visit: Yes Status: Acute Qualifiers: Anemia type: other cause Other causes of anemia: acute posthemorrhagic Qualified Code(s): D62 - Acute posthemorrhagic anemia Plan to address problem: Asymptomatic Continue daily oral iron supplementation as directed Increase iron rich foods into diet Subjective - Subjective Date of service: 05/03/19 Principal diagnosis: POD #5; s/p Repeat LTCS Interval history: See admission H & P and OB operative note Patient reports: appetite normal, voiding normally, pain well controlled (with medications), flatus, ambulating normally (but slowly) [place]: in NICU Objective - Vital Signs Latest vital signs: Vital Signs Temp Pulse Resp BP BP Pulse Ox 05/03/19 09:18 69 143/78 05/03/19 08:05 97.8 F 69 18 143/78 05/03/19 05:03 97.8 F 68 18 134/84 99 05/03/19 00:18 68 135/94 05/03/19 00:11 98.2 F 70 16 135/94 98 05/02/19 22:21 79 139/78 05/02/19 22:11 98.3 F 76 18 139/78 99 05/02/19 17:36 98.4 F 81 18 113/70 05/02/19 14:23 74 117/77 05/02/19 13:43 98.3 F 74 18 117/77 Intake and Output 05/02/19 05/03/19 05/03/19 23:59 07:59 15:59 Intake Total 600 180 360 Balance 600 180 360 Intake: Oral 480 360 Intake, Free Water 120 180 Other: Total, Intake Amount 480 360 # Voids Void 2 1 - Exam Breasts: Present: normal Cardiovascular: Present: Regular rate Lungs: Present: Normal air movement Abdomen: Present: soft, tenderness Uterus: Present: firm, fundal height below umbilicus (U-2) Extremities: Present: edema Deep Tendon Reflex Grade: Normal +2 Incision: Present: dry, intact (no signs of infection noted) - Labs Labs: Abnormal lab results 05/02/19 Range/Units 10:38 RBC 3.28 L (3.65-5.03) M/mm3 Hgb 9.5 L (10.1-14.3) gm/dl Hct 28.2 L (30.3-42.9) % RDW 17.2 H (13.2-15.2) %
--- NOTE | 2019-05-03 09:33 | Discharge Summary ---
Providers - Providers Date of Admission: 04/28/19 15:00 Date of discharge: 05/03/19 (1200) Attending physician: JAS PALOMARES MD Primary care physician: JAS PALOMARES MD Hospitalization Reason for admission: IUP - , induction of labor Delivery: Procedure: section (Repeat) Episiotomy: none Laceration: none Incision: dry, intact (no signs of infection noted) Other procedures: none complications: none Discharge diagnosis: other (S/P repeat C/S; anemia) baby: twins (males, in NICU) Hospital course: See admission H & P; OB operative summary; and PP progress notes Condition at discharge: Stable Disposition: DC-01 TO HOME OR SELFCARE - Discharge Diagnoses (1) S/P repeat low transverse Status: Acute (2) Anemia Status: Acute Qualifiers: Anemia type: other cause Other causes of anemia: acute posthemorrhagic Qualified Code(s): D62 - Acute posthemorrhagic anemia Plan - Discharge Medications Prescriptions: Ferrous Sulfate [Feosol 325 MG tab] 325 mg PO BID #60 tablet Ibuprofen [Motrin] 800 mg PO Q8HR PRN #30 tablet PRN Reason: Pain, Moderate (4-6) HYDROcodone/APAP 5-325 [[place] 5/325] 1 each PO Q6HR PRN #30 tablet PRN Reason: Pain Vit-Fe Fumar-FA [ Vitamin] 1 tab PO QDAY #30 tablet - Provider Discharge Summary Activity: routine, no sex for 6 weeks, no heavy lifting 4 weeks, no strenuous exercise Diet: other (Iron rich diet) Instructions: routine Additional instructions: [] Smoking cessation referral if applicable(refer to patient education folder for contact #) [] Refer to [facility] Booklet Call your doctor immediately for: * Fever > 100.5 * Heavy vaginal bleeding ( >1 pad per hour) * Severe persistent headache * Shortness of breath * Reddened, hot, painful area to leg or breast * Drainage or odor from incision. * Keep incision clean and dry at all times and follow doctor's instructions regarding bathing/showering * Wear HEYDI compression stockings; Elevate legs/feet when at rest * Continue daily oral iron supplementation as directed - Follow up plan Follow up: JAS PALOMARES MD [Primary Care Provider] - 7 Days
[2019-05-03 12:50] VITALS: BP 136/85
== END 2019-05-03 13:35 | disposition home or self-care (01) | DRG 786 ==
LOC: LD 15:00 → OB 04-29 00:11 → LD 04-30 13:47 → OB 05-01 20:52
PROVIDERS: ADMIT Obstetrics & Gynecology; ATTEND Obstetrics & Gynecology
PROC: 10D00Z1 Extraction of Products of Conception, Low, Open Approach (ICD-10-PCS; principal; 2019-04-28)
PROC: 3E0234Z Introduction of Serum, Toxoid and Vaccine into Muscle, Percutaneous Approach (ICD-10-PCS; 2019-04-29)
PROC: 3E0234Z Introduction of Serum, Toxoid and Vaccine into Muscle, Percutaneous Approach (ICD-10-PCS; 2019-05-02)
DX: O34.211 Maternal care for low transverse scar from previous cesarean delivery (principal); O60.14X0 Preterm labor third trimester with preterm delivery third trimester, not applicable or unspecified; D62 Acute posthemorrhagic anemia; O99.12 Other diseases of the blood and blood-forming organs and certain disorders involving the immune mechanism complicating childbirth; O30.033 Twin pregnancy, monochorionic/diamniotic, third trimester; O99.02 Anemia complicating childbirth; O14.94 Unspecified pre-eclampsia, complicating childbirth; D69.6 Thrombocytopenia, unspecified; O13.4 Gestational [pregnancy-induced] hypertension without significant proteinuria, complicating childbirth; Z79.899 Other long term (current) drug therapy; Z3A.34 34 weeks gestation of pregnancy; Z37.2 Twins, both liveborn; Z23 Encounter for immunization
CPT/HCPCS: 36415; 80053; 81001; 82565; 83615; 83735; 84450; 84460; 84550; 85027; 85049; 86850; 86900; 86901; 88307; G0378; J0690; J1170; J1885; J1940; J2405; J2590; J2765; J3475; J3490; J7120; J7121